=== PATIENT | female | born 1975 | race Caucasian/White ===

== ENCOUNTER 2016-10-14 20:15 | Emergency (ER) | payer OTHER ==
[~2016-10-14] VITALS: Ht 149.9 cm; Wt 51.0 kg
[2016-10-14 20:23] VITALS: Ht 149.9 cm; Wt 51.0 kg
[2016-10-14] MEDS ORDERED: DIPHENHYDRAMINE 50 MG INJ IM ONE (21:00)
[2016-10-14] MEDS ORDERED: EPIN0.3P4 INJ (21:06)
--- NOTE | 2016-10-14 21:26 | ERD ---
ER Documentation Chief Complaint Date/Time DATE: 10/14/16 TIME: 21:21 Chief Complaint HIVES WITH 3 HOSPITAL VISITS IN 2 DAYS W/ NO RELIEF. SOB TODAY HPI 41-year-old female presents in emergency department for complaints of itching all over the body no rash for the last 2 days, patient was seen in the hospital 2 times today, this is her third visit. Patient has been having on and off rash , last episode of Benadryl was 6 hours ago. Patient was given a Medrol Dosepak, was given epinephrine subcutaneous and Benadryl at 2 PM today while she was in the hospital. Patient started to have the rash again, and is worried. Patient had an episode of shortness of breath earlier that slightly gave her epinephrine subcutaneously. Patient is worried that she may have it again. Patient denies any shortness breath at this time. Patient denies any lip swelling, swelling or stridor. Patient did not remember eating something new or inhaling something new or different. ROS All systems reviewed and are negative except as per history of present illness. Medications Home Meds Active Scripts Epinephrine (Epipen 2-Erick) 0.3 Mg/0.3 Ml Pen.injctr, 1 EA INJ ONCE Y for ALLERGIC REACTION, #1 EA Prov:NICOLE VILLELA NP 10/14/16 Allergies Allergies: Coded Allergies: No Known Allergy (Unverified , 10/14/16) PMhx/Soc History of Surgery: No Anesthesia Reaction: No Hx Neurological Disorder: No Hx Respiratory Disorders: No Hx Cardiac Disorders: No Hx Psychiatric Problems: No Hx Miscellaneous Medical Probl: No Hx Alcohol Use: Yes (social) Hx Substance Use: No Hx Tobacco Use: No Smoking Status: Never smoker FmHx Family History: No coronary disease, No diabetes, No other Physical Exam Vitals Vital Signs Date Time Temp Pulse Resp B/P Pulse Ox O2 Delivery O2 Flow Rate FiO2 10/14/16 20:23 98.3 97 18 118/59 97 Physical Exam GENERAL: The patient is well developed and appropriate for usual state of health, in no apparent distress. CHEST: Clear to auscultation bilaterally. There are no rales, wheezes or rhonchi. No stridor. No angioedema noted. HEART: Regular rate and rhythm. No murmurs, clicks, rubs or gallops. No S3 or S4. ABDOMEN: Soft, nontender and nondistended. Good bowel sounds. No rebound or guarding. No gross peritonitis. No gross organomegaly or masses. No Hart sign or McBurney point tenderness. BACK: No midline or flank tenderness. EXTREMITIES: Equal pulses bilaterally. There is no peripheral clubbing, cyanosis or edema. No focal swelling or erythema. Full range of motion. Grossly neurovascularly intact. NEURO: Alert and oriented. Cranial nerves 2-12 intact. Motor strength in all 4 extremities with 5/5 strength. Sensation grossly intact. Normal speech and gait. SKIN: Maculopapular rash noted all over the body with urticaria. There is no apparent rash or petechia. The skin is warm and dry. HEMATOLOGIC AND LYMPHATIC: There is no evidence of excessive bruising or lymphedema. No gross cervical, axillary, or inguinal lymphadenopathy. Results 24 hrs Current Medications Medications (Trade) Dose Ordered Sig/Evaristo Route PRN Reason Start Time Stop Time Status Last Admin Dose Admin Diphenhydramine HCl (Benadryl) 50 mg ONCE ONCE IM 10/14/16 21:00 10/14/16 21:01 DC 10/14/16 20:54 Benadryl injection was in emergency department, tolerated medication well. Procedures/MDM Medical decision making: Patient symptoms like it consistent with allergic reaction, urticaria. At this time, the symptoms of angioedema, and symptoms of respiratory distress. No symptoms of any anaphylaxis. Patient was already given a prescription for Pepcid, Medrol Dosepak, also has Benadryl at home. Patient was advised to continue taking the medications, patient was also given a prescription for subcutaneous epinephrine, EpiPen to help if ever he she has shortness of breath or angioedema. Patient was advised to return to emergency department for any worsening symptoms see an ship fitter specialist. Follow-up with primary care doctor in 2-3 days for reevaluation Departure Diagnosis: Primary Impression: Urticaria Condition: Stable Patient Instructions: Hives Additional Instructions: continue benadryl, pepcid, medrol dose pack, see allergen specialist NICOLE VILLELA NP Oct 14, 2016 21:26
== END 2016-10-14 21:12 | disposition home or self-care (01) ==
LOC: FTE 20:15
DX: L50.0 Allergic urticaria (principal)
CPT/HCPCS: 96372; 99284; J1200